=== PATIENT | male | born 1970 | race Hispanic/Latino ===

== ENCOUNTER 2016-11-09 22:07 | Emergency (ER) | payer MEDICAID ==
--- NOTE | 2016-11-09 22:57 | ER NURSING DOCUMENTATION ---
Nurse's Notes [facility] Name:Alexander Carmona Age:45 yrs Sex:Male :1970 Arrival Date:11/09/2016 Time:22:07 Bed1 Private MD:Yvette Ohara Diagnosis:Peripheral Neuropathy Presentation: 11/09 22:08 Acuity: DOMINIQUE 4 22:18 Presenting complaint: Patient states: Pt has had nerve problems with the left knee and rh foot, both the left calf and foot have atrophied and he is concerned about this. No pain, no injury. Transition of care: Home. 22:18 Method Of Arrival: Walk In Triage Assessment: 22:20 General: Appears in no apparent distress, Behavior is cooperative. Pain: Denies pain. rh Neuro: Level of Consciousness is awake, alert, obeys commands. Musculoskeletal: Circulation, motion, and sensation intact Range of motion intact in all extremities. ATROPHY of the LEFT LOWER LEG AND FOOT. Historical: - Allergies: IV CONTRAST; - Home Meds: 1. None - PMHx: MENINGITIS; DROP FOOT ; MYOCLONIC DISORDER; - PSHx: None; - Tetanus: < 10 years. - Ebola Screening: : Patient negative for fever greater than or equal to 101.5 degrees Fahrenheit, and additional compatible Ebola Virus Disease symptoms. - Immunization history: Flu Vaccine < 1 year. - Social history: Smoking status: Patient uses tobacco products, current every day smoker. Screenin:21 Infectious Disease Risk None. Abuse screen: Denies threats or abuse. Denies injuries rh from another. Nutritional screening: No deficits noted. Assessment: 22:21 See Triage Assessment done by same RN. Vital Signs: 22:13 BP 129 / 83; Pulse 84; Resp 20; Temp 97.8(O); Pulse Ox 94% on R/A; Weight 78.02 kg; rh Height 5 ft. 11 in. (180.34 cm); Pain 0/10; 22:13 Body Mass Index 23.99 (78.02 kg, 180.34 cm) ED Course: 22:08 Patient arrived in ED. ma1 22:08 Physician, No is Private Physician. [facility] 22:08 Christa Villagran is Primary Nurse. 22:08 Triage completed. 22:15 Quique Ochoa MD is Attending Physician. sd 22:15 Notified ED Physician of patient's arrival and chief complaint. Dr. Ochoa notified. 22:21 Valuables Remains with patient Patient has correct armband on for positive rh identification. Call light in reach. Side rails up X 1. 22:49 Charles Casarez MD is Referral Physician. sd Administered Medications: No medications were administered Outcome: 22:50 Discharge ordered by . sd 22:56 Discharged to home ambulatory. 22:56 Condition: stable 22:56 Discharge Assessment: Patient awake, alert and oriented x 3. No cognitive and/or functional deficits noted. Patient verbalized understanding of disposition instructions. 22:56 Discharge instructions given to patient, Instructed on discharge instructions, follow up and referral plans. Demonstrated understanding of instructions. 22:56 Patient left the ED. Signatures: Quique Ochoa MD MD sc Hofsess, Christa sunita pryor Melissa ma1
--- NOTE | 2016-11-09 22:57 | ER PHYSICIAN DOCUMENTATION ---
Physician Documentation [facility] Name:Alexander Carmona Age:45 yrs Sex:Male :1970 Arrival Date:11/09/2016 Time:22:07 Bed1 Private MD:Physician, No ED Quique Kathleen Disposition: 11/09/16 22:50 Discharged to Home/Self Care. Impression: Peripheral Neuropathy. - Condition is Good. - Discharge Instructions: NEUROPATHY, Peripheral. - Medical Reconciliation form form. - Follow up: Charles Casarez MD; When: 10 - 14 days; Reason: Continuance of care. - Problem is an ongoing problem. - Symptoms are unchanged. HPI: 11/09 22:50 This 45 yrs old Male presents to ER via Walk In with complaints of Foot Injury sc - LEFT. 22:50 The patient presents with weakness, continued atrophy. The complaints affect the left sc foot. Context: foot drop after viral illness 3 years ago, didn't follow up after initial MRIs and EMGs and wants local neurology referral. Onset: The symptom(s)/episode began/occurred 3 year(s) ago. Associated signs and symptoms: The patient has no apparent associated signs or symptoms. Historical: - Allergies: IV CONTRAST; - Home Meds: 1. None - PMHx: MENINGITIS; DROP FOOT ; MYOCLONIC DISORDER; - PSHx: None; - Tetanus: < 10 years. - Ebola Screening: : Patient negative for fever greater than or equal to 101.5 degrees Fahrenheit, and additional compatible Ebola Virus Disease symptoms. - Immunization history: Flu Vaccine < 1 year. - Social history: Smoking status: Patient uses tobacco products, current every day smoker. ROS: 22:54 MS/extremity: Positive for weakness and atrophy, of the left leg. sc 22:54 Constitutional: Negative for fever, chills, and weight loss. sc Eyes: Negative for injury, pain, redness, and discharge. Cardiovascular: Negative for chest pain, palpitations, and edema. Respiratory: Negative for shortness of breath, cough, wheezing, and pleuritic chest pain. Back: Negative for injury and pain. MS/Extremity: Negative for injury and deformity. 22:54 Skin: Negative for injury, rash, and discoloration. Exam: Constitutional: This is a well developed, well nourished patient who is awake, alert, and in no acute distress. Head/Face: Normocephalic, atraumatic. Eyes: Pupils equal round and reactive to light, extra-ocular motions intact. Lids and lashes normal. Conjunctiva and sclera are non-icteric and not injected. Cornea within normal limits. Periorbital areas with no swelling, redness, or edema. Neck: Trachea midline, no thyromegaly or masses palpated, and no cervical lymphadenopathy. Supple, full range of motion without nuchal rigidity, or vertebral point tenderness. No meningismus. 22:55 Back: No spinal tenderness. No costovertebral tenderness. Full range of motion. nc 22:55 Musculoskeletal/extremity: Extremities: grossly normal except: ROM: intact in all extremities. 22:55 Neuro: Orientation: is normal. Vital Signs: 22:13 BP 129 / 83; Pulse 84; Resp 20; Temp 97.8(O); Pulse Ox 94% on R/A; Weight 78.02 kg; rh Height 5 ft. 11 in. (180.34 cm); Pain 0/10; 22:13 Body Mass Index 23.99 (78.02 kg, 180.34 cm) rh MDM: 22:15 Patient medically screened. nc 22:56 Differential diagnosis: no signs acute deterioration. Data reviewed: vital signs, nc nurses notes, old medical records, and as a result, I will discharge patient. Counseling: I had a detailed discussion with the patient and/or guardian regarding: the historical points, exam findings, and any diagnostic results supporting the discharge/admit diagnosis, the need for outpatient follow up, for a referral to a specialist. Dispensed Medications: No medications were administered Signatures: Quique Ochoa MD MD nc Christa Villagran
== END 2016-11-09 22:57 | disposition home or self-care (01) ==
LOC: ER 22:07
DX: G57.92 Unspecified mononeuropathy of left lower limb (principal); M62.572 Muscle wasting and atrophy, not elsewhere classified, left ankle and foot; M62.562 Muscle wasting and atrophy, not elsewhere classified, left lower leg; M21.372 Foot drop, left foot; B94.8 Sequelae of other specified infectious and parasitic diseases; F17.210 Nicotine dependence, cigarettes, uncomplicated
CPT/HCPCS: 99281